=== PATIENT | male | born 1970 | race Caucasian/White ===

== ENCOUNTER 2018-10-23 21:46 | Inpatient (IN) | payer MEDICAID, OTHER ==
[~2018-10-23] VITALS: Ht 177.8 cm; Wt 68.7 kg
[2018-10-23] MEDS ORDERED: SODIUM CHLORIDE 0.9% 1,000 ML IV ONE (22:03)
[2018-10-23] MEDS ORDERED: NALOXONE HCL 1 MG/ML 2ML VIAL IV ONE ×2 (22:15)
[2018-10-23 22:28] LABS: BG BASE EXCESS 3.6 mmol/L (-2.0-2.0); BG CARBOXYHEMOGLOBIN 0.5 % (0.5-1.5); BG DEOXYHEMOGLOBIN 2.6 % (0.0-5.0); BG FRACTION INSPIRED OXYGEN 32; BG HCO3 ACT 29.1 mmol/L (22.0-26.0); BG METHEMOGLOBIN 0.3 % (0.0-1.5); BG OXYGEN SATURATION 97.4 % (92.0-98.5); BG OXYHEMOGLOBIN 96.6 % (94.0-97.0); BG PCO2 48.2 mmHg (35.0-45.0); BG PH 7.399 (7.350-7.450); BG PO2 102.3 mmHg (75.0-100.0); BG SAMPLE SITE LEFT RADIAL; BG TOTAL HEMOGLOBIN 11.7 g/dL (12.0-18.0); BG VENT MODE NASAL CANNULA
[2018-10-23] MEDS ORDERED: VECURONIUM BROMIDE 10 MG/VIAL IV ONE ×2 (22:30→22:42)
[2018-10-23] MEDS ORDERED: ETOMIDATE 2MG/ML 10ML VIAL IV ONE ×2 (22:30→22:42)
[2018-10-23] MEDS ORDERED: SODIUM CHLORIDE 0.9% 10ML VIAL ONE (22:42)
[2018-10-23 23:06] LABS: BASOPHILS % 0.7 % (0.0-2.0); EOSINOPHILS % 4.7 % (0.0-5.0); HEMATOCRIT. 32.8 % (42.0-52.0); HEMOGLOBIN. 10.9 g/dL (14.0-18.0); MEAN CORPUSCULAR HEMOGLOBIN 28.5 pg (28.0-32.0); MEAN CORPUSCULAR VOLUME 86.2 fL (80.0-94.0); MEAN PLATELET VOLUME 7.7 fl (7.4-10.4); MONOCYTES % 8.3 % (2.0-8.0); NEUTROPHILS % 71.3 % (40.0-76.0); PLATELET 227 x1000/uL (130-400); RED BLOOD CELL COUNT 3.81 mill/uL (4.7-6.1); RED CELL DISTRIBUTION WIDTH 16.1 % (11.6-14.6)
[2018-10-23 23:11] LABS: CHLORIDE 106 mEq/L (98-107)
[2018-10-23 23:13] LABS: PROTHROMBIN TIME 10.3 sec (9.6-11.0)
[2018-10-23 23:15] LABS: ETHANOL BLOOD < 10 mg/dL
[2018-10-23 23:29] LABS: BG BASE EXCESS 0.4 mmol/L (-2.0-2.0); BG CARBOXYHEMOGLOBIN 0.3 % (0.5-1.5); BG DEOXYHEMOGLOBIN 4.9 % (0.0-5.0); BG FRACTION INSPIRED OXYGEN 40; BG HCO3 ACT 27.1 mmol/L (22.0-26.0); BG METHEMOGLOBIN 0.3 % (0.0-1.5); BG OXYGEN SATURATION 95.1 % (92.0-98.5); BG OXYHEMOGLOBIN 94.5 % (94.0-97.0); BG PCO2 53.9 mmHg (35.0-45.0); BG PO2 84.7 mmHg (75.0-100.0); BG SAMPLE SITE LEFT RADIAL; BG TIDAL VOLUME(mL) 550 mL; BG TOTAL HEMOGLOBIN 11.3 g/dL (12.0-18.0); BG VENT MODE VENT - A/C; BG VENT RATE 10 set
[2018-10-23] MEDS ORDERED: CEFTRIAXONE 2 G PREMIX 50 ML IV ONE (23:45)
[2018-10-23] MEDS ORDERED: SODIUM CHLORIDE 0.9% 1000ML BAG (SEPSIS BOLUS) IV ONE (23:45)
[2018-10-23 23:46] LABS: CLARITY URINE CLEAR (CLEAR); COLOR URINE YELLOW (YELLOW); KETONES URINE NEGATIVE (NEGATIVE); LEUKOCYTE ESTERASE URINE NEGATIVE (NEGATIVE); NITRITE URINE NEGATIVE (NEGATIVE); OCCULT BLOOD URINE NEGATIVE (NEGATIVE); PH URINE 6.5 (4.5-8.0); PROTEIN URINE NEGATIVE (NEGATIVE); UROBILINOGEN URINE 0.2 E.U./dL (0.2-1.0)
[2018-10-23 23:55] LABS: *AMPHETAMINES SCREEN URINE NEGATIVE (NEGATIVE); *BARBITURATES SCREEN URINE NEGATIVE (NEGATIVE); *BENZODIAZEPINES SCREEN URINE NEGATIVE (NEGATIVE); *COCAINE SCREEN URINE NEGATIVE (NEGATIVE)
[2018-10-23 23:56] LABS: CANNABINOID URINE SCREEN NEGATIVE (NEGATIVE); METHADONE URINE SCREEN NEGATIVE (NEGATIVE); OPIATES URINE SCREEN NEGATIVE (NEGATIVE); PHENCYCLIDINE URINE SCREEN NEGATIVE (NEGATIVE)
[2018-10-24] VITALS (73 sets, daily range): BP systolic 119–159; BP diastolic 76–108
[2018-10-24] MEDS ORDERED: PROPOFOL 10MG/ML 100ML 100 ML IV ONE
[2018-10-24] MEDS ORDERED: IOHEXOL-350 100 ML BOTTLE ONE (01:25)
[2018-10-24] MEDS ORDERED: ACETAMINOPHEN 650MG SUPP PR PRN (02:00)
[2018-10-24] MEDS ORDERED: DOCUSATE SODIUM 100MG CAPSULE PO PRN (02:00)
[2018-10-24] MEDS ORDERED: IPRATROPIUM/ALBUTEROL 0.5-3(2.5)MG/3ML NEB INH PRN (02:00)
[2018-10-24] MEDS ORDERED: CLONIDINE 0.1MG TABLET PO PRN (02:00)
[2018-10-24] MEDS ORDERED: NA PHOS,M-B/NA PHOS,DI-BA ENEMA 118ML PR PRN (02:00)
[2018-10-24] MEDS ORDERED: IPRATROPIUM/ALBUTEROL 0.5-3(2.5)MG/3ML NEB INH SCH (02:00)
[2018-10-24] MEDS ORDERED: GUAIFENESIN 200MG/10ML SUGAR FREE UDC PO PRN (02:00)
[2018-10-24] MEDS ORDERED: DEXTROSE 50% WATER 50ML SYRINGE IV PRN (02:00)
[2018-10-24] MEDS ORDERED: DIPHENHYDRAMINE 50MG/ML VIAL IV PRN (02:00)
[2018-10-24] MEDS ORDERED: ACETAMINOPHEN 325MG TABLET PO PRN (02:00)
[2018-10-24] MEDS: PROPOFOL 10MG/ML 100ML 100 ML IV PRN ×3 (04:25→22:16)
[2018-10-24] MEDS: DEXT 5%/0.45% NACL 1000ML 1,000 ML IV SCH ×3 (04:26→22:25)
[2018-10-24] MEDS: SODIUM CHLORIDE 0.9% INJ 3ML FLUSH IVF SCH ×3 (04:51→22:15)
[2018-10-24 06:23] LABS: CREATINE KINASE 361 IU/L (39-308)
[2018-10-24 06:24] LABS: CREATINE KINASE MB FRACTION 3.1 ng/mL (0.5-3.6)
[2018-10-24] MEDS: BLOOD SUGAR DIAGNOSTIC STRIP TEST SCH ×3 (07:50→18:24)
[2018-10-24 09:21] LABS: BG BASE EXCESS 1.3 mmol/L (-2.0-2.0); BG CARBOXYHEMOGLOBIN 0.6 % (0.5-1.5); BG DEOXYHEMOGLOBIN 1.3 % (0.0-5.0); BG FRACTION INSPIRED OXYGEN 40; BG HCO3 ACT 26.5 mmol/L (22.0-26.0); BG METHEMOGLOBIN 0.1 % (0.0-1.5); BG OXYGEN SATURATION 98.7 % (92.0-98.5); BG PCO2 44.2 mmHg (35.0-45.0); BG PH 7.396 (7.350-7.450); BG PO2 147.6 mmHg (75.0-100.0); BG SAMPLE SITE RIGHT RADIAL; BG TIDAL VOLUME(mL) 550 mL; BG TOTAL HEMOGLOBIN 12.3 g/dL (12.0-18.0); BG VENT MODE VENT - A/C; BG VENT RATE 10 set
[2018-10-24 09:22] LABS: CLARITY URINE CLEAR (CLEAR); COLOR URINE YELLOW (YELLOW); KETONES URINE NEGATIVE (NEGATIVE); LEUKOCYTE ESTERASE URINE NEGATIVE (NEGATIVE); NITRITE URINE NEGATIVE (NEGATIVE); OCCULT BLOOD URINE NEGATIVE (NEGATIVE); PROTEIN URINE NEGATIVE (NEGATIVE); SPECIFIC GRAVITY URINE 1.015 (1.005-1.030); UROBILINOGEN URINE 0.2 E.U./dL (0.2-1.0)
[2018-10-24] MEDS ORDERED: RANI300T4 MT (09:34)
[2018-10-24] MEDS ORDERED: FERR159T3 PO (09:34)
[2018-10-24] MEDS ORDERED: SACC250C MT (09:34)
[2018-10-24] MEDS ORDERED: ESCI20TA36 MT (09:34)
[2018-10-24] MEDS ORDERED: ENAL2.5T MT (09:34)
[2018-10-24] MEDS ORDERED: CLOZ25TA4 MT (09:34)
[2018-10-24] MEDS ORDERED: CALCIT (09:34)
[2018-10-24] MEDS ORDERED: LEVO50TA8 MT (09:34)
[2018-10-24] MEDS ORDERED: POLY15DR56 EACHEYE (09:34)
[2018-10-24] MEDS ORDERED: MULT-1146 MT (09:34)
[2018-10-24] MEDS ORDERED: CLOZ100T31 MT (09:34)
[2018-10-24] MEDS ORDERED: [UNRECOGNIZED DRUG - OTHER] (09:34)
[2018-10-24] MEDS ORDERED: BENZ0.5T43 MT (09:34)
[2018-10-24] MEDS ORDERED: CHOL100044 MT (09:34)
[2018-10-24] MEDS ORDERED: METF-414 MT (09:34)
[2018-10-24 09:41] LABS: *AMPHETAMINES SCREEN URINE NEGATIVE (NEGATIVE)
[2018-10-24 09:42] LABS: *BARBITURATES SCREEN URINE NEGATIVE (NEGATIVE); *BENZODIAZEPINES SCREEN URINE NEGATIVE (NEGATIVE); *COCAINE SCREEN URINE NEGATIVE (NEGATIVE)
[2018-10-24 09:43] LABS: METHADONE URINE SCREEN NEGATIVE (NEGATIVE); OPIATES URINE SCREEN NEGATIVE (NEGATIVE)
[2018-10-24 09:44] LABS: CANNABINOID URINE SCREEN NEGATIVE (NEGATIVE); PHENCYCLIDINE URINE SCREEN NEGATIVE (NEGATIVE)
[2018-10-24 10:18] LABS: BASOPHILS % 0.3 % (0.0-2.0); EOSINOPHILS % 4.5 % (0.0-5.0); HEMATOCRIT. 36.4 % (42.0-52.0); HEMOGLOBIN. 11.9 g/dL (14.0-18.0); LYMPHOCYTES % 13.3 % (20.0-50.0); MEAN CORPUSCULAR HEMOGLOBIN 28.4 pg (28.0-32.0); MEAN CORPUSCULAR VOLUME 86.9 fL (80.0-94.0); MEAN PLATELET VOLUME 7.7 fl (7.4-10.4); NEUTROPHILS % 71.9 % (40.0-76.0); PLATELET 240 x1000/uL (130-400); RED BLOOD CELL COUNT 4.19 mill/uL (4.7-6.1); RED CELL DISTRIBUTION WIDTH 16.5 % (11.6-14.6)
[2018-10-24 10:29] LABS: CHLORIDE 110 mEq/L (98-107)
[2018-10-24] MEDS: INSULIN LISPRO 100 UNITS/ML SUBCUT SCH ×3 (10:45→18:20)
[2018-10-24] MEDS: ENOXAPARIN 40MG/0.4ML SYR SUBCUT SCH (10:47)
[2018-10-24 12:26] LABS: T4 FREE 0.8 ng/dL (0.76-1.46)
[2018-10-24] MEDS: THIAMINE HCL 100MG TABLET PO SCH ×2 (13:32→18:34)
[2018-10-24 14:12] LABS: BG BASE EXCESS 2.4 mmol/L (-2.0-2.0); BG CARBOXYHEMOGLOBIN 0.8 % (0.5-1.5); BG DEOXYHEMOGLOBIN 1.6 % (0.0-5.0); BG FRACTION INSPIRED OXYGEN 40; BG HCO3 ACT 27.4 mmol/L (22.0-26.0); BG METHEMOGLOBIN 0.3 % (0.0-1.5); BG OXYGEN SATURATION 98.4 % (92.0-98.5); BG OXYHEMOGLOBIN 97.3 % (94.0-97.0); BG PCO2 43.7 mmHg (35.0-45.0); BG PH 7.415 (7.350-7.450); BG PO2 136.1 mmHg (75.0-100.0); BG PRESSURE SUPPORT 12; BG SAMPLE SITE RIGHT RADIAL; BG TIDAL VOLUME(mL) 550 mL; BG TOTAL HEMOGLOBIN 12.7 g/dL (12.0-18.0); BG VENT MODE VENT - SIMV; BG VENT RATE 10 set
[2018-10-24] MEDS: BENZTROPINE MESYLATE 0.5MG TABLET NG SCH (15:55)
[2018-10-24 16:29] LABS: CREATINE KINASE 257 IU/L (39-308)
[2018-10-24 16:30] LABS: CREATINE KINASE MB FRACTION 2.6 ng/mL (0.5-3.6)
[2018-10-24] MEDS: IPRATROPIUM/ALBUTEROL 0.5-3(2.5)MG/3ML NEB HHN SCH ×2 (16:31→20:07)
[2018-10-24] MEDS ORDERED: PROPOFOL 10MG/ML 100ML 100 ML IV PRN (17:00)
[2018-10-24] MEDS ORDERED: MEDICATION NOT ON FORMULARY EA (Metformin Hcl 1 TAB) MT SCH (17:00)
[2018-10-24] MEDS ORDERED: POLYVINYL ALCOHOL EACHEYE SCH (17:00)
[2018-10-24] MEDS ORDERED: [UNRECOGNIZED DRUG - MIXTURE] SCH (17:00)
[2018-10-24] MEDS: METFORMIN HCL 500MG TABLET NG SCH (18:20)
[2018-10-24] MEDS: CALCIUM CARBONATE/VITAMIN D3 500MG TABLET NG SCH (18:31)
[2018-10-24] MEDS: POLYVINYL ALCOHOL OPHTH DROPS 15ML BOTHEYE SCH (18:31)
[2018-10-24] MEDS: FAMOTIDINE 20MG TABLET NG SCH (18:31)
[2018-10-24] MEDS: CHOLECALCIFEROL (D3) 1000 UNIT TABLET NG SCH (18:31)
[2018-10-24] MEDS: CLOZAPINE 25 MG NG SCH (21:00)
[2018-10-24] MEDS: CLOZAPINE 100 MG NG SCH (21:00)
[2018-10-25] VITALS (53 sets, daily range): BP systolic 96–144; BP diastolic 63–102
[2018-10-25] MEDS: BLOOD SUGAR DIAGNOSTIC STRIP TEST SCH ×4 (00:03→17:16)
[2018-10-25] MEDS: IPRATROPIUM/ALBUTEROL 0.5-3(2.5)MG/3ML NEB HHN SCH ×4 (00:13→20:12)
[2018-10-25] MEDS: INSULIN LISPRO 100 UNITS/ML SUBCUT SCH ×4 (00:19→17:24)
[2018-10-25 05:48] LABS: BASOPHILS % 0.3 % (0.0-2.0); EOSINOPHILS % 4.9 % (0.0-5.0); HEMATOCRIT. 36.2 % (42.0-52.0); HEMOGLOBIN. 12.6 g/dL (14.0-18.0); LYMPHOCYTES % 11.4 % (20.0-50.0); MEAN CORPUSCULAR HEMOGLOBIN 29.9 pg (28.0-32.0); MEAN CORPUSCULAR VOLUME 85.8 fL (80.0-94.0); MEAN PLATELET VOLUME 7.9 fl (7.4-10.4); MONOCYTES % 8.3 % (2.0-8.0); NEUTROPHILS % 75.1 % (40.0-76.0); PLATELET 233 x1000/uL (130-400); RED BLOOD CELL COUNT 4.21 mill/uL (4.7-6.1); RED CELL DISTRIBUTION WIDTH 16.6 % (11.6-14.6)
[2018-10-25 05:56] LABS: CHLORIDE 108 mEq/L (98-107)
[2018-10-25 06:03] LABS: LDL CHOLESTEROL 53 mg/dL (5-100)
[2018-10-25 06:04] LABS: HDL CHOLESTEROL 53 mg/dL (40-59)
[2018-10-25] MEDS: SODIUM CHLORIDE 0.9% INJ 3ML FLUSH IVF SCH ×3 (06:52→21:10)
[2018-10-25] MEDS: ONDANSETRON HCL 4MG/2ML INJ IV PRN (08:25)
[2018-10-25] MEDS ORDERED: POTASSIUM CHLORIDE 20MEQ TABLET SR PO SCH (08:30)
[2018-10-25] MEDS ORDERED: MEDICATION NOT ON FORMULARY EA (Ranitidine Hcl 1 TAB) MT SCH (09:00)
[2018-10-25] MEDS ORDERED: MEDICATION NOT ON FORMULARY EA (Enalapril Maleate 1 TAB) MT SCH (09:00)
[2018-10-25] MEDS: BENZTROPINE MESYLATE 0.5MG TABLET NG SCH (09:00)
[2018-10-25] MEDS ORDERED: ESCITALOPRAM OXALATE 20 MG NG SCH (09:00)
[2018-10-25] MEDS ORDERED: SACCHAROMYCES BOULARDII MT SCH (09:00)
[2018-10-25 09:17] LABS: BG BASE EXCESS 2.4 mmol/L (-2.0-2.0); BG DEOXYHEMOGLOBIN 3.8 % (0.0-5.0); BG FRACTION INSPIRED OXYGEN 35; BG HCO3 ACT 27.6 mmol/L (22.0-26.0); BG METHEMOGLOBIN 0.1 % (0.0-1.5); BG OXYGEN SATURATION 96.2 % (92.0-98.5); BG OXYHEMOGLOBIN 95.1 % (94.0-97.0); BG PH 7.405 (7.350-7.450); BG PRESSURE SUPPORT 12; BG SAMPLE SITE RIGHT RADIAL; BG TIDAL VOLUME(mL) 550 mL; BG TOTAL HEMOGLOBIN 12.3 g/dL (12.0-18.0); BG VENT MODE VENT - SIMV; BG VENT RATE 10 set
[2018-10-25] MEDS: POLYVINYL ALCOHOL OPHTH DROPS 15ML BOTHEYE SCH ×2 (09:31→17:14)
[2018-10-25] MEDS: ENOXAPARIN 40MG/0.4ML SYR SUBCUT SCH (09:31)
[2018-10-25] MEDS: DEXT 5%/0.45% NACL 1000ML 1,000 ML IV SCH ×2 (09:32→20:05)
[2018-10-25] MEDS: FAMOTIDINE 20MG TABLET NG SCH ×2 (11:42→17:14)
[2018-10-25] MEDS: MULTIVITAMINS,THER W-MINERALS TABLET NG SCH (11:42)
[2018-10-25] MEDS: FERROUS SULFATE 50 MG PO SCH ×2 (11:42→17:14)
[2018-10-25] MEDS: METFORMIN HCL 500MG TABLET NG SCH ×2 (11:42→17:30)
[2018-10-25] MEDS: THIAMINE HCL 100MG TABLET PO SCH ×2 (11:43→17:14)
[2018-10-25] MEDS: CALCIUM CARBONATE/VITAMIN D3 500MG TABLET NG SCH ×2 (11:43→17:14)
[2018-10-25] MEDS: LACTOBACILLUS GG CAPSULE NG SCH (11:43)
[2018-10-25] MEDS: ENALAPRIL 2.5MG TABLET NG SCH (11:43)
[2018-10-25] MEDS: LEVOTHYROXINE SODIUM 50MCG TABLET NG SCH (11:43)
[2018-10-25] MEDS: CLOZAPINE 25 MG NG SCH ×2 (11:45→21:09)
[2018-10-25] MEDS: CHOLECALCIFEROL (D3) 1000 UNIT TABLET NG SCH ×2 (11:45→17:14)
[2018-10-25] MEDS: CLOZAPINE 100 MG NG SCH ×2 (11:45→21:09)
[2018-10-25] MEDS: LORAZEPAM 2MG/ML CPJ IV PRN (17:30)
[2018-10-25 17:34] LABS: BG BASE EXCESS 2.4 mmol/L (-2.0-2.0); BG CARBOXYHEMOGLOBIN 0.6 % (0.5-1.5); BG DEOXYHEMOGLOBIN 2.4 % (0.0-5.0); BG FRACTION INSPIRED OXYGEN 35; BG HCO3 ACT 27.7 mmol/L (22.0-26.0); BG METHEMOGLOBIN 0.1 % (0.0-1.5); BG OXYGEN SATURATION 97.6 % (92.0-98.5); BG OXYHEMOGLOBIN 96.9 % (94.0-97.0); BG PCO2 45.5 mmHg (35.0-45.0); BG PH 7.402 (7.350-7.450); BG PO2 107.8 mmHg (75.0-100.0); BG PRESSURE SUPPORT 12; BG SAMPLE SITE LEFT RADIAL; BG TIDAL VOLUME(mL) 550 mL; BG TOTAL HEMOGLOBIN 13.4 g/dL (12.0-18.0); BG VENT MODE VENT - SIMV; BG VENT RATE 6 set
[2018-10-25 19:12] LABS: BG BASE EXCESS 1.6 mmol/L (-2.0-2.0); BG CARBOXYHEMOGLOBIN 0.3 % (0.5-1.5); BG DEOXYHEMOGLOBIN 2.9 % (0.0-5.0); BG FRACTION INSPIRED OXYGEN 35; BG HCO3 ACT 26.7 mmol/L (22.0-26.0); BG METHEMOGLOBIN 0.1 % (0.0-1.5); BG OXYGEN SATURATION 97.1 % (92.0-98.5); BG OXYHEMOGLOBIN 96.7 % (94.0-97.0); BG PCO2 43.7 mmHg (35.0-45.0); BG PH 7.404 (7.350-7.450); BG PO2 99.4 mmHg (75.0-100.0); BG PRESSURE SUPPORT 12; BG SAMPLE SITE RIGHT RADIAL; BG VENT MODE VENT - CPAP
[2018-10-26] VITALS (38 sets, daily range): BP systolic 93–145; BP diastolic 49–101
[2018-10-26] MEDS: IPRATROPIUM/ALBUTEROL 0.5-3(2.5)MG/3ML NEB HHN SCH ×5 (00:17→20:39)
[2018-10-26] MEDS: BLOOD SUGAR DIAGNOSTIC STRIP TEST SCH ×4 (00:22→17:37)
[2018-10-26] MEDS: INSULIN LISPRO 100 UNITS/ML SUBCUT SCH ×4 (00:32→17:37)
[2018-10-26] MEDS: DEXT 5%/0.45% NACL 1000ML 1,000 ML IV SCH ×2 (05:56→16:26)
[2018-10-26] MEDS: LORAZEPAM 2MG/ML CPJ IV PRN (05:56)
[2018-10-26] MEDS: SODIUM CHLORIDE 0.9% INJ 3ML FLUSH IVF SCH ×3 (05:56→21:26)
[2018-10-26] MEDS: POLYVINYL ALCOHOL OPHTH DROPS 15ML BOTHEYE SCH ×2 (08:51→16:32)
[2018-10-26] MEDS: FERROUS SULFATE 50 MG PO SCH ×2 (08:51→16:32)
[2018-10-26] MEDS: FAMOTIDINE 20MG TABLET NG SCH ×2 (08:52→16:32)
[2018-10-26] MEDS: THIAMINE HCL 100MG TABLET PO SCH ×2 (08:52→16:32)
[2018-10-26] MEDS: MULTIVITAMINS,THER W-MINERALS TABLET NG SCH (08:52)
[2018-10-26] MEDS: ENOXAPARIN 40MG/0.4ML SYR SUBCUT SCH (08:52)
[2018-10-26] MEDS: CHOLECALCIFEROL (D3) 1000 UNIT TABLET NG SCH ×2 (08:52→16:32)
[2018-10-26] MEDS: METFORMIN HCL 500MG TABLET NG SCH ×2 (08:52→18:45)
[2018-10-26] MEDS: CALCIUM CARBONATE/VITAMIN D3 500MG TABLET NG SCH ×2 (08:52→16:32)
[2018-10-26] MEDS: LEVOTHYROXINE SODIUM 50MCG TABLET NG SCH (08:52)
[2018-10-26] MEDS: LACTOBACILLUS GG CAPSULE NG SCH (08:52)
[2018-10-26] MEDS: ENALAPRIL 2.5MG TABLET NG SCH (09:00)
[2018-10-26 11:29] LABS: BG BASE EXCESS 1.6 mmol/L (-2.0-2.0); BG CARBOXYHEMOGLOBIN 0.3 % (0.5-1.5); BG CPAP (cmH2O) 0 cm(H2O); BG HCO3 ACT 26.2 mmol/L (22.0-26.0); BG METHEMOGLOBIN 0.2 % (0.0-1.5); BG OXYHEMOGLOBIN 95.5 % (94.0-97.0); BG PCO2 41.1 mmHg (35.0-45.0); BG PH 7.422 (7.350-7.450); BG PO2 86.2 mmHg (75.0-100.0); BG SAMPLE SITE RIGHT BRACHIAL; BG TOTAL HEMOGLOBIN 12.6 g/dL (12.0-18.0); BG VENT MODE VENT - CPAP
[2018-10-26 11:47] LABS: CHLORIDE 106 mEq/L (98-107)
[2018-10-26] MEDS: CLOZAPINE 100 MG NG SCH ×2 (13:39→21:24)
[2018-10-26] MEDS: CLOZAPINE 25 MG NG SCH ×2 (13:40→21:24)
[2018-10-26] MEDS: BENZTROPINE MESYLATE 0.5MG TABLET NG SCH (13:40)
[2018-10-26] MEDS ORDERED: VANCOMYCIN 1500MG in DEXTROSE 5% WATER 250ML IV SCH (14:00)
[2018-10-26] MEDS: VANCOMYCIN 1250MG in DEXTROSE 5% WATER 250ML IV SCH (21:26)
[2018-10-27] VITALS (37 sets, daily range): BP systolic 83–150; BP diastolic 55–120
[2018-10-27] MEDS: IPRATROPIUM/ALBUTEROL 0.5-3(2.5)MG/3ML NEB HHN SCH ×6 (00:11→21:31)
[2018-10-27] MEDS: DEXT 5%/0.45% NACL 1000ML 1,000 ML IV SCH ×2 (03:02→11:31)
[2018-10-27 05:13] LABS: HIV SCREEN 4G Non Reactive (Non Reactive)
[2018-10-27] MEDS: INSULIN LISPRO 100 UNITS/ML SUBCUT SCH ×5 (06:00→21:00)
[2018-10-27 06:12] LABS: BASOPHILS % 0.5 % (0.0-2.0); EOSINOPHILS % 7.8 % (0.0-5.0); HEMATOCRIT. 33.1 % (42.0-52.0); HEMOGLOBIN. 11.1 g/dL (14.0-18.0); LYMPHOCYTES % 14.5 % (20.0-50.0); MEAN CORPUSCULAR HEMOGLOBIN 28.7 pg (28.0-32.0); MEAN CORPUSCULAR VOLUME 85.7 fL (80.0-94.0); MEAN PLATELET VOLUME 7.7 fl (7.4-10.4); MONOCYTES % 9.3 % (2.0-8.0); NEUTROPHILS % 67.9 % (40.0-76.0); PLATELET 225 x1000/uL (130-400); RED BLOOD CELL COUNT 3.86 mill/uL (4.7-6.1); RED CELL DISTRIBUTION WIDTH 16.1 % (11.6-14.6)
[2018-10-27 06:27] LABS: CHLORIDE 109 mEq/L (98-107)
[2018-10-27] MEDS: VANCOMYCIN 1250MG in DEXTROSE 5% WATER 250ML IV SCH ×2 (06:43→13:21)
[2018-10-27] MEDS: BLOOD SUGAR DIAGNOSTIC STRIP TEST SCH ×5 (06:43→21:18)
[2018-10-27] MEDS: SODIUM CHLORIDE 0.9% INJ 3ML FLUSH IVF SCH ×3 (06:43→21:18)
[2018-10-27] MEDS: LEVOTHYROXINE SODIUM 50MCG TABLET NG SCH (07:50)
[2018-10-27] MEDS ORDERED: POTASSIUM PHOS,M-BASIC-D-BASIC 10 MMOL in DEXT 5% WATER 246.6667 ML IV NR (08:00)
[2018-10-27] MEDS: METFORMIN HCL 500MG TABLET NG SCH ×2 (08:20→17:44)
[2018-10-27] MEDS: CLOZAPINE 100 MG NG SCH ×2 (08:41→21:17)
[2018-10-27] MEDS: BENZTROPINE MESYLATE 0.5MG TABLET NG SCH (08:41)
[2018-10-27] MEDS: CLOZAPINE 25 MG NG SCH ×2 (08:41→21:18)
[2018-10-27] MEDS: CHOLECALCIFEROL (D3) 1000 UNIT TABLET NG SCH ×2 (08:42→16:13)
[2018-10-27] MEDS: FAMOTIDINE 20MG TABLET NG SCH ×2 (08:42→16:13)
[2018-10-27] MEDS: LACTOBACILLUS GG CAPSULE NG SCH (08:42)
[2018-10-27] MEDS: ENALAPRIL 2.5MG TABLET NG SCH (08:42)
[2018-10-27] MEDS: CALCIUM CARBONATE/VITAMIN D3 500MG TABLET NG SCH ×2 (08:42→16:13)
[2018-10-27] MEDS: MULTIVITAMINS,THER W-MINERALS TABLET NG SCH (08:42)
[2018-10-27] MEDS: FERROUS SULFATE 50 MG PO SCH ×2 (08:43→16:13)
[2018-10-27] MEDS: THIAMINE HCL 100MG TABLET PO SCH ×2 (08:43→16:13)
[2018-10-27] MEDS: POLYVINYL ALCOHOL OPHTH DROPS 15ML BOTHEYE SCH ×2 (08:45→16:13)
[2018-10-27] MEDS: ENOXAPARIN 40MG/0.4ML SYR SUBCUT SCH (08:45)
[2018-10-27 15:57] LABS: CHLORIDE 110 mEq/L (98-107)
[2018-10-27] MEDS ORDERED: THROAT LOZENGES-BENZOCAINE/MENTH/CETYLPYRD CL LOZENGES MM PRN (16:00)
[2018-10-27] MEDS: ACETAMINOPHEN 650MG/20.3ML UDC GT PRN ×2 (16:14→17:14)
[2018-10-28] VITALS: BP 133/76
[2018-10-28] MEDS: IPRATROPIUM/ALBUTEROL 0.5-3(2.5)MG/3ML NEB HHN SCH ×6 (00:59→20:58)
[2018-10-28 04:36] VITALS: BP 115/83
[2018-10-28] MEDS: BLOOD SUGAR DIAGNOSTIC STRIP TEST SCH ×4 (05:24→21:12)
[2018-10-28] MEDS: LEVOTHYROXINE SODIUM 50MCG TABLET NG SCH (05:33)
[2018-10-28] MEDS: SODIUM CHLORIDE 0.9% INJ 3ML FLUSH IVF SCH ×3 (05:33→21:32)
[2018-10-28] MEDS: INSULIN LISPRO 100 UNITS/ML SUBCUT SCH ×4 (06:01→21:00)
[2018-10-28 06:10] LABS: BASOPHILS % 0.5 % (0.0-2.0); EOSINOPHILS % 6.4 % (0.0-5.0); HEMATOCRIT. 34.4 % (42.0-52.0); HEMOGLOBIN. 11.4 g/dL (14.0-18.0); LYMPHOCYTES % 12.7 % (20.0-50.0); MEAN CORPUSCULAR HEMOGLOBIN 28.3 pg (28.0-32.0); MEAN CORPUSCULAR VOLUME 85.5 fL (80.0-94.0); MONOCYTES % 8.1 % (2.0-8.0); NEUTROPHILS % 72.3 % (40.0-76.0); PLATELET 231 x1000/uL (130-400); RED BLOOD CELL COUNT 4.02 mill/uL (4.7-6.1)
[2018-10-28 06:26] LABS: CHLORIDE 107 mEq/L (98-107)
[2018-10-28 08:26] VITALS: BP 129/86
[2018-10-28] MEDS: LACTOBACILLUS GG CAPSULE NG SCH (09:08)
[2018-10-28] MEDS: CHOLECALCIFEROL (D3) 1000 UNIT TABLET NG SCH ×2 (09:08→17:30)
[2018-10-28] MEDS: MULTIVITAMINS,THER W-MINERALS TABLET NG SCH (09:08)
[2018-10-28] MEDS: FAMOTIDINE 20MG TABLET NG SCH ×3 (09:08→17:42)
[2018-10-28] MEDS: CALCIUM CARBONATE/VITAMIN D3 500MG TABLET NG SCH ×2 (09:08→17:20)
[2018-10-28] MEDS: THIAMINE HCL 100MG TABLET PO SCH ×2 (09:08→17:20)
[2018-10-28] MEDS: METFORMIN HCL 500MG TABLET NG SCH (09:08)
[2018-10-28] MEDS: ENOXAPARIN 40MG/0.4ML SYR SUBCUT SCH (09:09)
[2018-10-28] MEDS: BENZTROPINE MESYLATE 0.5MG TABLET NG SCH (10:07)
[2018-10-28] MEDS: POLYVINYL ALCOHOL OPHTH DROPS 15ML BOTHEYE SCH ×2 (10:08→17:20)
[2018-10-28] MEDS: CLOZAPINE 25 MG NG SCH ×2 (10:09→21:31)
[2018-10-28] MEDS: CLOZAPINE 100 MG NG SCH ×2 (10:09→21:31)
[2018-10-28 11:38] VITALS: BP 138/92
[2018-10-28] MEDS: FERROUS SULFATE 50 MG PO SCH ×2 (12:17→17:20)
[2018-10-28] MEDS: ENALAPRIL 2.5MG TABLET NG SCH (14:18)
[2018-10-28 15:07] LABS: QFT MITOGEN VALUE >10.00 IU/mL (.); QFT TB GOLD PLUS Positive (Negative); QFT TB1 AG VALUE 0.57 IU/mL (.)
[2018-10-28 15:49] VITALS: BP 129/92
[2018-10-28] MEDS ORDERED: METOCLOPRAMIDE HCL 10MG/2ML VIAL IV NR (17:11)
[2018-10-28] MEDS: ONDANSETRON HCL 4MG/2ML INJ IV PRN (17:19)
[2018-10-28] MEDS: FAMOTIDINE 20MG/2ML VIAL IV SCH (17:30)
[2018-10-28 20:00] VITALS: BP 116/79
[2018-10-28] MEDS ORDERED: LACTULOSE 20G/30ML UDC PO SCH (20:00)
[2018-10-28] MEDS ORDERED: POTASSIUM CHLORIDE 20MEQ TABLET SR PO SCH (20:00)
[2018-10-28] MEDS ORDERED: BISACODYL 5MG TABLET PO SCH (20:00)
[2018-10-28] MEDS: MAGNESIUM/ALUMINUM HYDROXIDE/SIMETHICONE 30ML UDC PO PRN (23:36)
[2018-10-29] VITALS (7 sets, daily range): BP systolic 105–125; BP diastolic 72–84
[2018-10-29] MEDS: IPRATROPIUM/ALBUTEROL 0.5-3(2.5)MG/3ML NEB HHN SCH ×7 (00:45→23:49)
[2018-10-29] MEDS: SODIUM CHLORIDE 0.9% INJ 3ML FLUSH IVF SCH ×3 (06:00→22:00)
[2018-10-29] MEDS: INSULIN LISPRO 100 UNITS/ML SUBCUT SCH ×4 (06:20→21:00)
[2018-10-29] MEDS: BLOOD SUGAR DIAGNOSTIC STRIP TEST SCH ×4 (06:20→21:00)
[2018-10-29] MEDS: LEVOTHYROXINE SODIUM 50MCG TABLET NG SCH (06:34)
[2018-10-29] MEDS: FAMOTIDINE 20MG/2ML VIAL IV SCH (08:13)
[2018-10-29] MEDS: ENOXAPARIN 40MG/0.4ML SYR SUBCUT SCH (08:13)
[2018-10-29] MEDS: THIAMINE HCL 100MG TABLET PO SCH ×2 (08:14→16:46)
[2018-10-29] MEDS: MULTIVITAMINS,THER W-MINERALS TABLET NG SCH (08:14)
[2018-10-29] MEDS: CALCIUM CARBONATE/VITAMIN D3 500MG TABLET NG SCH ×2 (08:14→16:46)
[2018-10-29] MEDS: BENZTROPINE MESYLATE 0.5MG TABLET NG SCH (08:15)
[2018-10-29] MEDS: ENALAPRIL 2.5MG TABLET NG SCH (08:15)
[2018-10-29] MEDS: FERROUS SULFATE 50 MG PO SCH ×2 (08:16→16:45)
[2018-10-29] MEDS: POLYVINYL ALCOHOL OPHTH DROPS 15ML BOTHEYE SCH ×2 (08:17→16:46)
[2018-10-29] MEDS: CLOZAPINE 100 MG NG SCH ×2 (08:19→21:00)
[2018-10-29] MEDS: CLOZAPINE 25 MG NG SCH ×2 (08:19→21:00)
[2018-10-29] MEDS: LACTOBACILLUS GG CAPSULE NG SCH (08:26)
[2018-10-29] MEDS: CHOLECALCIFEROL (D3) 1000 UNIT TABLET NG SCH ×2 (08:28→16:46)
[2018-10-29] MEDS: FAMOTIDINE 20MG TABLET NG SCH (16:46)
[2018-10-30] MEDS: MAGNESIUM/ALUMINUM HYDROXIDE/SIMETHICONE 30ML UDC PO PRN (00:37)
[2018-10-30 04:00] VITALS: BP 101/60
[2018-10-30] MEDS: IPRATROPIUM/ALBUTEROL 0.5-3(2.5)MG/3ML NEB HHN SCH ×3 (05:02→12:56)
[2018-10-30] MEDS: SODIUM CHLORIDE 0.9% INJ 3ML FLUSH IVF SCH ×2 (06:00→13:05)
[2018-10-30] MEDS: BLOOD SUGAR DIAGNOSTIC STRIP TEST SCH ×2 (06:10→11:27)
[2018-10-30] MEDS: INSULIN LISPRO 100 UNITS/ML SUBCUT SCH ×2 (06:11→11:41)
[2018-10-30] MEDS: LEVOTHYROXINE SODIUM 50MCG TABLET NG SCH (06:11)
[2018-10-30 08:00] VITALS: BP 124/79
[2018-10-30] MEDS: BENZTROPINE MESYLATE 0.5MG TABLET NG SCH (08:27)
[2018-10-30] MEDS: LACTOBACILLUS GG CAPSULE NG SCH (08:27)
[2018-10-30] MEDS: FAMOTIDINE 20MG TABLET NG SCH (08:27)
[2018-10-30] MEDS: CALCIUM CARBONATE/VITAMIN D3 500MG TABLET NG SCH (08:27)
[2018-10-30] MEDS: MULTIVITAMINS,THER W-MINERALS TABLET NG SCH (08:27)
[2018-10-30] MEDS: CHOLECALCIFEROL (D3) 1000 UNIT TABLET NG SCH (08:27)
[2018-10-30] MEDS: THIAMINE HCL 100MG TABLET PO SCH (08:27)
[2018-10-30] MEDS: ENALAPRIL 2.5MG TABLET NG SCH (08:28)
[2018-10-30] MEDS: ENOXAPARIN 40MG/0.4ML SYR SUBCUT SCH (08:28)
[2018-10-30] MEDS: POLYVINYL ALCOHOL OPHTH DROPS 15ML BOTHEYE SCH (08:28)
[2018-10-30] MEDS: FERROUS SULFATE 50 MG PO SCH (08:28)
[2018-10-30] MEDS: FAMOTIDINE 20MG/2ML VIAL IV SCH (08:29)
[2018-10-30] MEDS: CLOZAPINE 25 MG NG SCH (08:29)
[2018-10-30] MEDS: CLOZAPINE 100 MG NG SCH (08:29)
[2018-10-30 12:00] VITALS: BP 120/84
== END 2018-10-30 14:30 | disposition home or self-care (01) | DRG 137 ==
LOC: ER 22:11 → CVICU 23:44 → EDBEDREQTM 23:48 → EDBEDREQ 23:48 → ENRESERV 10-24 01:08 → 8WST 10-27 22:30
PROVIDERS: ADMIT Family Medicine; ATTEND Family Medicine
PROC: 5A1945Z Respiratory Ventilation, 24-96 Consecutive Hours (ICD-10-PCS; principal; 2018-10-23)
PROC: 0BH17EZ Insertion of Endotracheal Airway into Trachea, Via Natural or Artificial Opening (ICD-10-PCS; 2018-10-23)
PROC: 4A00X4Z Measurement of Central Nervous Electrical Activity, External Approach (ICD-10-PCS; 2018-10-26)
DX: J69.0 Pneumonitis due to inhalation of food and vomit (principal); J96.00 Acute respiratory failure, unspecified whether with hypoxia or hypercapnia; G93.41 Metabolic encephalopathy; F20.9 Schizophrenia, unspecified; D64.9 Anemia, unspecified; E11.9 Type 2 diabetes mellitus without complications; E03.9 Hypothyroidism, unspecified; E78.5 Hyperlipidemia, unspecified; I10 Essential (primary) hypertension; E87.6 Hypokalemia; F10.10 Alcohol abuse, uncomplicated; K59.00 Constipation, unspecified
CPT/HCPCS: 36415; 36600; 70496; 70498; 71045; 74018; 80048; 80061; 80202; 80305; 80307; 80320; 80329; 82140; 82375; 82550; 82553; 82805; 82962; 83036; 83605; 83735; 83880; 84100; 84439; 84443; 84478; 84484; 85379; 86480; 86592; 86850; 86900; 87070; 87389; 92610; 93005; 93306; 94002; 94003; 94640; 95816; 97161; 99285; J0696; J1650; J1815; J2060; J2310; J2405; J2704; J2765; J3370; J3490; J7030; J7060; J7620; Q9967; A4315; G0480